=== PATIENT | male | born 1945 ===

== ENCOUNTER 2024-07-20 15:21 | Outpatient (REF) | payer OTHER, SELFPAY ==
[2024-07-20 14:55] LABS: Anion Gap 5.4 mmol/L (3-11); BUN 16 mg/dL (7-18); CO2 30.6 mmol/L (21.0-32.0); CREATININE 1.1 mg/dL (0.70-1.30); Calcium 9.5 mg/dL (8.5-10.1); Calculated LDL 48 mg/dL (<100); Chloride 107 mmol/L (98-107); Cholesterol 136 mg/dL (<200); Estimated GFR 69.14 (mL/min/1.73m2); Glucose 115 mg/dL (74-106); HDL Cholesterol 53 mg/dL (40-60); Potassium 4.9 mmol/L (3.5-5.1); Sodium 143 mmol/L (136-145); Triglyceride 178 mg/dL (<150)
[2024-07-21 10:11] LABS: PSA, Screening 1.3 ng/mL (<=6.5)
== END 2024-07-20 15:22 | disposition home or self-care (01) ==
LOC: NCHCN 15:21
PROVIDERS: Visit Provider Family Medicine
DX: I10 Essential (primary) hypertension (principal); E78.00 Pure hypercholesterolemia, unspecified; Z12.5 Encounter for screening for malignant neoplasm of prostate
CPT/HCPCS: 80048; 80061; 84153